=== PATIENT | male | born 1965 | race Caucasian/White ===

== ENCOUNTER 2016-12-20 17:04 | Emergency (ER) | payer OTHER ==
[~2016-12-20] VITALS: Ht 190.5 cm; Wt 140.0 kg
[~2016-12-20 17:04] MED LIST: CYCL7.5T33 PO; DICL75TA PO; MEDR4PAK PO
[2016-12-20 17:13] VITALS: BP 148/85; PULSE 74; RESP 16; TEMP 98.2; O2SAT 96
--- NOTE | 2016-12-20 17:57 | PD ---
HPI Chief Complaint: Musculoskeletal Complaint Time Seen by Provider: 17:53 Travel History International Travel<30 days: No Contact w/Intl Traveler<30days: No Traveled to known affect area: No History of Present Illness HPI Patient comes in for evaluation of injury that occurred this morning while at work to his right forearm. Patient states he was working having his right forearm stuck between a pin box and a frame. Patient states he applied ice to this that makes pain worse. Denies any radiation of pain. Pain is also worse with certain movement of his right hand and wrist. Patient denies doing anything else for his pain. Pain is primarily over the right forearm radial aspect around some soft tissue swelling. There is small abrasion noted. Patient states his tetanus shot is not up-to-date and does not want one today. [facility] Past Medical History Musculoskeletal: Yes Tetanus Vaccination: > 5 Years Influenza Vaccination: No Past Surgical History Surgical History: No Previous Surgery Social History Alcohol Use: No Tobacco Use: No Substance Use: No Allergies-Medications (Allergen,Severity, Reaction): Coded Allergies: No Known Allergies (Unverified , 12/20/16) Reported Meds & Prescriptions Reported Meds & Active Scripts Active No Active Prescriptions or Reported Medications Review of Systems Except as stated in HPI: all other systems reviewed are Neg Physical Exam Narrative GENERAL: Well-developed, overly nourished, in no acute distress, and non-ill appearing. SKIN: Focused skin assessment warm and dry. Small approximately half centimeter abrasion right forearm and soft tissue swelling patient states his pain is. HEAD: Atraumatic. Normocephalic. EYES: Pupils equal and round. EOMI. No scleral icterus. No injection or drainage. ENT: No nasal bleeding or discharge. Mucous membranes pink and moist. NECK: Trachea midline. Supple. No nuclear rigidity. CARDIOVASCULAR: Radial pulses 2+, nontender, and equal bilaterally. Capillary refill less than 2 seconds. RESPIRATORY: No accessory muscle use. No respiratory distress. MUSCULOSKELETAL: No obvious deformities. No clubbing. No cyanosis. No edema. Decreased active range of motion right wrist secondary to pain in his forearm.. Wrist: FROM and equal BL with passive flexion, extension, and pronation/ supination. Capillary refill less than 2 seconds distal to injury and equal BL. FROM distal to injury and equal BL. Strength distal to injury equal BL. NV intact distal to injury. Flexion and extension of thumb equal BL. Equal strength and movement with abduction/adductions of BL fingers. Balance Truing Inspector strength equal BL. No tenderness to the anatomical snuffbox. Patient reports tenderness radial aspect of right forearm more distal, proximal to the wrist. There is some soft tissue swelling noted. NEUROLOGICAL: Awake and alert. No obvious cranial nerve deficits. Motor grossly within normal limits. Normal speech. PSYCHIATRIC: Appropriate mood and affect; insight and judgment normal. Data Data Last Documented VS Vital Signs Date Time Temp Pulse Resp B/P Pulse Ox O2 Delivery O2 Flow Rate FiO2 12/20/16 19:58 75 16 140/86 99 12/20/16 17:13 98.2 Orders Forearm (2vws) (12/20/16 ) Splint Or Brace Apply/Monitor (12/20/16 19:30) Wound Care (12/20/16 19:33) Tetanus/Diphtheria Tox Adult (Tetanus/Di (12/20/16 19:45) MDM Medical Decision Making Medical Screen Exam Complete: Yes Emergency Medical Condition: Yes Differential Diagnosis Fracture, sprain, contusion, foreign body, other Narrative Course The patient appears to have suffered a contusion of the extremity. There is no clinical evidence to suspect bony injury by exam. Radiographic examination revealed no fracture seen at this time. The patient has full range of motion on active and passive motions. There is no significant edema. There is no proximal or distal joint effusion. The distal extremity appears neurovascularly intact, without evidence of neurovascular injury nor compartment syndrome. Tendon exam also was intact. The patient was discharged on pain medication instructions and given warnings for vascular compromise. The patient is to follow up with their Workmen's Comp. provider or Orthopedics. The patient agrees with plan. The patient suffered abrasion. The abrasions are very superficial and nonrepairable. There was no evidence to suggest foreign bodies. Visual and tactile exams were unremarkable. There was no evidence of neurovascular injury as well. The patients wound was cleaned and dressed. The patient was given signs and symptom warnings for infection, such as increasing pain, redness, swelling, associated heat, pus or fever. The patient was given instructions for timely follow up. The patient agreed with plan of care. Patient in no obvious distress upon re-evaluation and now willing to take the tetanus vaccination.. All pertinent Radiology result(s) discussed with patient. Any questions/concerns in reference to patient diagnosis/condition discussed and clarified prior to patient's discharge. Reinforced sheer importance of close follow up with patient's Workmen's Comp. provider. Instructed patient to return to ED immediately, if symptoms return/worsen. Pt showed understanding of above instructions. Further instructions and recommendations were detailed in discharge paperwork. Pt ambulated without difficulty out of ED at discharge. Diagnosis Primary Impression: Contusion of right forearm, initial encounter Additional Impression: Abrasion Patient Instructions: Abrasion (ED), Contusion in Adults (ED), General Instructions, Splint Care (ED) Additional Instructions: Follow-up with your workmen's comp provider and/or orthopedics in 2-3 days for reevaluation. Keep wound dry and clean as possible using soap and water. Use Neosporin to promote healing. Wear Yovani wrap for comfort. Use [id number] Tylenol and/or ibuprofen as needed for pain. Follow instructions on the packaging. Apply ice to affected area 20 minutes prior is needed for pain. Return to the emergency department if symptoms get worse. Scripts No Active Prescriptions or Reported Meds Disposition: 01 DISCHARGE HOME Condition: Stable Can Garcia Dec 20, 2016 17:57
--- NOTE | 2016-12-20 19:27 | RADHPO ---
EXAM DATE/TIME: 12/20/2016 18:03 [facility] COMPARISON: No previous studies available for comparison. INDICATIONS : Right forearm pain. Patient states his arm was trapped between a pin box at work. MEDICAL HISTORY : None. SURGICAL HISTORY : None. ENCOUNTER: Initial ACUITY: 1 day PAIN SCORE: 1/10 LOCATION: Right forearm. FINDINGS: Two view examination of the right forearm demonstrates no evidence of fracture or dislocation. Bony mineralization is normal. The soft tissue structures are intact. CONCLUSION: No evidence of recent bony injury. Valente Oliva MD on December 20, 2016 at 19:26 Board Certified Radiologist. This report was verified electronically.
[2016-12-20] MEDS ORDERED: TETANUS/DIPHTHERIA TOXOID ADULT 0.5 ML VIAL IM ONE (19:45)
[2016-12-20 19:58] VITALS: BP 140/86
== END 2016-12-20 19:59 | disposition home or self-care (01) ==
LOC: PHEFT 17:04
DX: S50.11XA Contusion of right forearm, initial encounter (principal); S50.811A Abrasion of right forearm, initial encounter; W23.0XXA Caught, crushed, jammed, or pinched between moving objects, initial encounter; Y99.0 Civilian activity done for income or pay; Z23 Encounter for immunization
CPT/HCPCS: 73090; 90471; 90714